=== PATIENT | female | born 1980 | race Caucasian/White ===

== ENCOUNTER 2017-09-23 00:34 | Emergency (ER) | payer MEDICAID ==
[~2017-09-23] VITALS: Ht 170.2 cm; Wt 60.4 kg
[2017-09-23] MEDS ORDERED: LIDOcaine 1% 30ml preserv. free vial IJ ONE (01:55)
[2017-09-23] MEDS ORDERED: ondansetron/PF 4mg/2ml inj IM ONE (02:05)
[2017-09-23] MEDS ORDERED: morphine 4 MG/ML inj SYRINge IM ONE (02:05)
[2017-09-23] MEDS ORDERED: BACDS PO (03:13)
[2017-09-23] MEDS ORDERED: CEPH500C5 PO (03:13)
[2017-09-23] MEDS ORDERED: HYDR-569 PO (03:13)
[2017-09-23 03:44] VITALS: BP 109/68
== END 2017-09-23 03:47 | disposition home or self-care (01) ==
LOC: ER 00:35
DX: K61.0 Anal abscess (principal); G89.29 Other chronic pain; Z56.0 Unemployment, unspecified
CPT/HCPCS: 10060; 96372; 99284; A6449; J2270; J2405; J3490

== ENCOUNTER 2017-10-29 20:36 | Emergency (ER) | payer MEDICAID ==
[~2017-10-29] VITALS: Ht 170.2 cm; Wt 66.8 kg
[~2017-10-29 20:36] MED LIST: CEPH500C5 PO; HYDR-569 PO
[2017-10-29] MEDS ORDERED: normal saline 1000ML IV soln IVB ONE (23:05)
[2017-10-29] MEDS ORDERED: metoclopramide 5 mg/ml inj IV ONE (23:05)
[2017-10-29] MEDS ORDERED: diphenhydrAMINE 50 mg/ml inj IV ONE (23:05)
[2017-10-29] MEDS ORDERED: ketorolac trometh. 30mg/ml inj. IV ONE (23:05)
[2017-10-29 23:24] LABS: BASOPHILS % (AUTO) 0.1 % (0-1); EOSINOPHILS % (AUTO) 0.1 % (0-6); HEMATOCRIT 37.2 % (35.0-45.0); HEMOGLOBIN 12.7 g/dl (12.0-16.0); LYMPHOCYTES # (AUTO) 1.2 X10'3 (1.1-4.8); MEAN CORPUSCULAR HEMOGLOBIN 29.7 PG (27.0-31.0); MEAN CORPUSCULAR HGB CONC 34.2 % (33.0-36.5); MEAN CORPUSCULAR VOLUME 86.8 FL (78-98); MEAN PLATELET VOLUME 8.1 FL (7.4-10.4); MONOCYTES # (AUTO) 1.4 X10'3 (0-0.9); MONOCYTES % (AUTO) 12.1 % (2-12); NEUTROPHILS # (AUTO) 8.6 X10'3 (1.8-7.7); NEUTROPHILS % (AUTO) 76.7 % (42-75); PLATELET COUNT 193 X10'3 (140-440); RED BLOOD COUNT 4.28 X10'6 (4.20-5.60); RED CELL DISTRIBUTION WIDTH 13.8 % (11.5-14.5); WHITE BLOOD COUNT 11.2 X10'3 (4.5-11.0)
[2017-10-29 23:37] LABS: ALANINE AMINOTRANSFERASE 89 U/L (12-78); ALBUMIN 2.9 G/DL (3.4-5.0); ALBUMIN/GLOBULIN RATIO 0.7 (1.1-1.5); ALKALINE PHOSPHATASE 89 IU/L (46-116); ANION GAP 11 (8-16); ASPARTATE AMINO TRANSFERASE 78 U/L (10-37); BILIRUBIN,TOTAL 0.3 MG/DL (0.1-1.0); BLOOD UREA NITROGEN 7 MG/DL (7-18); BUN/CREATININE RATIO 7.1 (6.6-38.0); CALCIUM 8.5 MG/DL (8.5-10.1); CHLORIDE 97 MMOL/L (99-107); CREATININE 0.99 MG/DL (0.40-0.90); GLUCOSE 129 MG/DL (70-104); POTASSIUM 3.6 MMOL/L (3.5-5.1); SODIUM 134 MMOL/L (135-145); TOTAL CARBON DIOXIDE 26.2 MMOL/L (24-32); eGFR 63 ML/MIN
[2017-10-30 01:08] LABS: URINE HCG NEGATIVE (NEG)
[2017-10-30 01:12] LABS: CLARITY,URINE CLOUDY (Clear); COLOR,URINE YELLOW (Yellow); GLUCOSE, URINE NEGATIVE (Neg); KETONES,URINE NEGATIVE (Neg); LEUKOCYTE ESTERASE ,URINE LARGE (Neg); NITRITES, URINE NEGATIVE (Neg); OCCULT BLOOD,URINE MODERATE (Neg); PROTEIN,URINE 30 mg/dl (Neg); UA COLLECTION TYPE CLN CATCH MIDSTREAM
[2017-10-30 01:19] LABS: BACTERIA,URINE 4+ /HPF (Neg); RBC,URINE NONE SEEN /HPF (0-2); SQUAMOUS EPITHELIAL CELL,UR FEW /LPF (FEW); WBC,URINE TNTC /HPF (0-4)
[2017-10-30 01:26] LABS: URINE AMPHETAMINE SCREEN POSITIVE (Neg); URINE BARBITUATE SCREEN NEGATIVE (Neg); URINE BENZODIAZEPINES SCREEN NEGATIVE (Neg); URINE CANNABINOID SCREEN NEGATIVE (Neg); URINE COCAINE SCREEN NEGATIVE (Neg); URINE METHADONE SCREEN NEGATIVE (Neg); URINE OPIATE SCREEN NEGATIVE (Neg); URINE PHENCYCLIDINE SCREEN NEGATIVE (Neg)
[2017-10-30 01:51] VITALS: BP 91/57
[2017-10-30 02:18] LABS: TOTAL PROTEIN,CSF 57 MG/DL (15-45)
[2017-10-30] MEDS ORDERED: CefTRIAXone 2gm/D5W 50ml 50 ML IV ONE (02:20)
[2017-10-30 02:30] LABS: APPEARANCE,CSF CLEAR; CSF SUPERNATANT COLOR COLORLESS; TUBE# COUNTED 1
[2017-10-30 02:31] LABS: CSF RBC 0 /CU MM (0); CSF WBC CT 1 /CU MM (0-5)
[2017-10-30 02:34] LABS: APPEARANCE,CSF CLEAR; CSF SUPERNATANT COLOR COLORLESS; TUBE# COUNTED 1
[2017-10-30 02:35] LABS: CSF RBC 0 /CU MM (0); CSF WBC CT 0 /CU MM (0-5)
[2017-10-30 02:36] LABS: GLUCOSE,CSF 70 MG/DL (40-75)
[2017-10-30] MEDS ORDERED: HYDR-569 PO (02:50)
[2017-10-30] MEDS ORDERED: CIPR-259 PO (02:50)
[2017-11-02 13:27] LABS: VDRL, CSF Non Reactive (Non Rea:<1:1)
== END 2017-10-30 03:36 | disposition home or self-care (01) ==
LOC: ER 20:37
DX: N12 Tubulo-interstitial nephritis, not specified as acute or chronic (principal); R51 Headache; G89.29 Other chronic pain; Z56.0 Unemployment, unspecified; Z79.2 Long term (current) use of antibiotics
CPT/HCPCS: 36415; 62270; 70450; 80053; 80305; 81001; 81025; 82945; 84157; 85025; 86592; 86617; 86788; 86789; 87015; 87070; 87077; 87088; 87186; 89051; 96365; 96375; 99291; A6449; J0696; J1200; J1885; J2765

== ENCOUNTER 2017-12-25 11:01 | Emergency (ER) | payer MEDICAID ==
[~2017-12-25] VITALS: Ht 170.2 cm; Wt 65.5 kg
[2017-12-25] MEDS ORDERED: BACDS PO (11:47)
[2017-12-25] MEDS ORDERED: MUPI22OI30 TOP (11:47)
[2017-12-25] MEDS ORDERED: CEPH500C2 PO (11:47)
[2017-12-25 12:20] LABS: URINE HCG NEGATIVE (NEG)
[2017-12-25 12:25] VITALS: BP 24/74
== END 2017-12-25 12:27 | disposition home or self-care (01) ==
LOC: ER 11:02
DX: L03.312 Cellulitis of back [any part except buttock and flank] (principal); G89.29 Other chronic pain; Z79.899 Other long term (current) drug therapy; Z56.0 Unemployment, unspecified
CPT/HCPCS: 81025; 99283

== ENCOUNTER 2019-07-28 16:30 | Emergency (ER) | payer MEDICAID, OTHER ==
[~2019-07-28] VITALS: Ht 170.2 cm; Wt 53.9 kg
[~2019-07-28 16:30] MED LIST changes: -CEPH500C5 PO; +HYDR-4383 PO; -HYDR-569 PO
[2019-07-28] MEDS ORDERED: normal saline 1000ML IV soln IVB ONE (17:15)
[2019-07-28] MEDS ORDERED: ondansetron/PF 4mg/2ml inj IV ONE (17:15)
[2019-07-28] MEDS ORDERED: normal saline 1000ml 1,000 ML IV SCH (17:41)
[2019-07-28] MEDS ORDERED: HYDROcodone/acetaminophen 5mg/325mg tablet PO PRN (17:45)
[2019-07-28] MEDS ORDERED: potassium CL 10mEq/100ml bag 100 ML IV PRN ×2 (17:45)
[2019-07-28] MEDS ORDERED: potassium Cl 20 mEq SR tablet PO PRN ×2 (17:45)
[2019-07-28] MEDS ORDERED: acetaminophen 325mg tablet PO PRN (17:45)
[2019-07-28] MEDS ORDERED: magnesium Cl slow-release 64mg tablet PO PRN (17:45)
[2019-07-28] MEDS ORDERED: magnesium 4gm in 100ml NS 100 ML IV PRN (17:45)
[2019-07-28] MEDS ORDERED: magnesium 2GM in 50ml NS 50 ML IV PRN (17:45)
[2019-07-28] MEDS ORDERED: morphine 2 MG/ML inj. syringe IV PRN ×2 (17:45→18:00)
[2019-07-28] MEDS ORDERED: NO HOME MEDS (17:46)
[2019-07-28 17:47] LABS: BASOPHILS % (AUTO) 0.5 % (0-1); EOSINOPHILS # (AUTO) 0.1 X10'3 (0-0.9); EOSINOPHILS % (AUTO) 1.8 % (0-6); HEMATOCRIT 40.8 % (35.0-45.0); HEMOGLOBIN 13.7 g/dl (12.0-16.0); LYMPHOCYTES # (AUTO) 2.6 X10'3 (1.1-4.8); LYMPHOCYTES % (AUTO) 41.1 % (21-51); MEAN CORPUSCULAR HEMOGLOBIN 29.3 PG (27.0-31.0); MEAN CORPUSCULAR HGB CONC 33.5 g/dL (33.0-36.5); MEAN CORPUSCULAR VOLUME 87.5 FL (78-98); MEAN PLATELET VOLUME 7.8 FL (7.4-10.4); MONOCYTES # (AUTO) 0.5 X10'3 (0-0.9); MONOCYTES % (AUTO) 8.1 % (2-12); NEUTROPHILS # (AUTO) 3.1 X10'3 (1.8-7.7); NEUTROPHILS % (AUTO) 48.5 % (42-75); PLATELET COUNT 306 X10'3 (140-440); RED BLOOD COUNT 4.66 X10'6 (4.20-5.60); RED CELL DISTRIBUTION WIDTH 13.1 % (11.5-14.5); WHITE BLOOD COUNT 6.4 X10'3 (4.5-11.0)
--- NOTE | 2019-07-28 17:47 | NUR ---
pt taken by surgical team. discussed with team that urine has not been taken yet, and we have an unconfirmed lmp, and need lab results to disprove still.
[2019-07-28] MEDS ORDERED: ringers solution, lacted 1,000 ML IV SCH (17:56)
[2019-07-28 17:59] LABS: ALANINE AMINOTRANSFERASE 18 U/L (12-78); ALBUMIN 3.9 G/DL (3.4-5.0); ALBUMIN/GLOBULIN RATIO 1.1 (1.1-1.5); ALKALINE PHOSPHATASE 53 IU/L (46-116); ANION GAP 4 (8-16); ASPARTATE AMINO TRANSFERASE 12 U/L (10-37); BILIRUBIN,TOTAL 0.2 MG/DL (0.1-1.0); BLOOD UREA NITROGEN 9 MG/DL (7-18); BUN/CREATININE RATIO 9.6 (6.6-38.0); CHLORIDE 106 MMOL/L (99-107); CREATININE 0.94 MG/DL (0.40-0.90); GLUCOSE 93 MG/DL (70-104); POTASSIUM 4.1 MMOL/L (3.5-5.1); SODIUM 140 MMOL/L (135-145); TOTAL CARBON DIOXIDE 29.6 MMOL/L (24-32); TOTAL PROTEIN 7.4 G/DL (6.4-8.2); eGFR 67 ML/MIN
[2019-07-28] MEDS ORDERED: acetaminophen 1,000mg/100ml IV 100 ML IV PRN (18:00)
[2019-07-28] MEDS ORDERED: ondansetron/PF 4mg/2ml inj IV PRN (18:00)
[2019-07-28] MEDS ORDERED: morphine 4 MG/ML inj SYRINge IV PRN (18:00)
[2019-07-28] MEDS ORDERED: proCHLORperazine 10 MG/2 ml inj IV PRN (18:00)
[2019-07-28] MEDS ORDERED: meperidine/PF 25mg/ml syringe IV PRN ×3 (18:00)
[2019-07-28] MEDS ORDERED: LIDOcaine 2% 5ml jelly ONE (18:12)
[2019-07-28] MEDS ORDERED: midazolam 2 mg/2 ml injection ONE (18:12)
[2019-07-28] MEDS ORDERED: propofol inj 20 ML IV ONE (18:12)
[2019-07-28] MEDS ORDERED: LIDOcaine 2% (20mg/ml) 5ml vial ONE (18:13)
[2019-07-28 18:22] LABS: HCG SERUM QL NEGATIVE
[2019-07-28] MEDS ORDERED: sugammadex 200mg/2ml injection IV ONE (18:43)
[2019-07-28] MEDS ORDERED: rocuronium 10mg/ml inj IV ONE (18:43)
[2019-07-28] MEDS ORDERED: dexamethasone sod phosphate 4mg/ml inj. ONE (18:43)
[2019-07-28] MEDS ORDERED: ondansetron/PF 4mg/2ml inj ONE (18:43)
[2019-07-28] MEDS ORDERED: metoclopramide 5 mg/ml inj ONE (18:43)
[2019-07-28 18:48] VITALS: BP 120/51
--- NOTE | 2019-07-28 18:48 | NUR ---
Received from OR via [facility] , accompanied by Anesthesiologist PARI and report given by Anesthesiolgist. PATIENT WITH 20G PIV IN LEFT AC RUNNING LR AT100. DENIES PAIN AT THIS TIME. VSS. Addendum: 07/28/19 at 1856 by Maxi Hidalgo RN, RN Amended: Links added.
[2019-07-28 18:58] VITALS: BP 115/76
[2019-07-28 19:08] VITALS: BP 112/74
--- NOTE | 2019-07-28 19:18 | NUR ---
ALL DC CRITERIA HAS BEEN MET. IV TAKEN OUT WITHOUT COMPLICATIONS. ALL INSTRUCTIONS COVERED AND ALL QUESTIONS ANSWERED. DRESSINGS CDI. OUT VIA WHEELCHAIR TO PERSONAL VEHICLE WHERE PATIENT WAS SECURED IN AND DRIVEN HOME BY FAMILY. Addendum: 07/28/19 at 1922 by Maxi Hidalgo RN, RN Amended: Links added.
[2019-07-28] MEDS ORDERED: K and/or MAG REPLACEMENT MC SCH (20:00)
== END 2019-07-28 19:18 | disposition home or self-care (01) ==
LOC: ER 16:33 → UNDOADMIN 17:41 → ED HOLD 17:41 → UNDOADMIN 17:58 → ED HOLD 17:58
DX: T18.5XXA Foreign body in anus and rectum, initial encounter (principal); G89.29 Other chronic pain; Z79.899 Other long term (current) drug therapy; F41.9 Anxiety disorder, unspecified; F32.9 Major depressive disorder, single episode, unspecified; X58.XXXA Exposure to other specified factors, initial encounter; Y93.89 Activity, other specified; Y92.89 Other specified places as the place of occurrence of the external cause; Y99.8 Other external cause status
CPT/HCPCS: 36415; 45332; 72170; 80053; 84703; 85025; 96374; 99285; C9399; J1100; J2001; J2250; J2405; J2704; J2765; J7030; J7120; A4618; A7000; G0378